=== PATIENT | female | born 1995 | race Caucasian/White ===

== ENCOUNTER 2022-08-16 15:35 | Emergency (ER) | payer OTHER, SELFPAY ==
[2022-08-16] MEDS ORDERED: HYDROcodone/Acetaminophen 7.5/325 mg Tablet ONE (18:00)
[2022-08-16] MEDS ORDERED: Ketorolac Tromethamine 30 MG/ML VIAL ONE (18:00)
[2022-08-16] MEDS ORDERED: Ondansetron ODT 4 MG TAB ONE (18:00)
[2022-08-16] MEDS ORDERED: Diazepam 5 MG TAB ONE (18:00)
== END 2022-08-16 20:20 | disposition home or self-care (01) ==
LOC: ERS 15:35
DX: S42.322A Displaced transverse fracture of shaft of humerus, left arm, initial encounter for closed fracture (principal); E10.9 Type 1 diabetes mellitus without complications; Z79.4 Long term (current) use of insulin; V80.010A Animal-rider injured by fall from or being thrown from horse in noncollision accident, initial encounter
CPT/HCPCS: 96372; J1885; Q0162